=== PATIENT | male | born 1965 | race Caucasian/White ===

== ENCOUNTER 2020-08-19 16:09 | Inpatient (IN) ==
[2020-08-19] MEDS ORDERED: Famotidine 20 MG/2 ML VIAL IVP ONE (16:57)
[2020-08-19 17:15] LABS: Basophils # 0.1 K/mcL (0.0-0.2); Basophils % 0.6 %; Eosinophils # 0.2 K/mcL (0.0-0.6); Eosinophils % 2.1 %; Hematocrit 47.3 % (37.5-50.1); Hemoglobin 15.8 g/dL (12.9-16.9); Immature Granulocytes % 0.8 % (0-4); Lymphocytes # 1.8 K/mcL (0.6-4.6); Lymphocytes % 22.7 %; Mean Corpuscular HGB Conc 33.4 g/dL (31.6-35.5); Mean Corpuscular Hemoglobin 32.3 pg (28.0-33.3); Mean Corpuscular Volume 96.7 fL (83.0-100.0); Mean Platelet Volume 10.2 fL (9.4-12.4); Monocytes # 0.9 K/mcL (0.0-1.3); Monocytes % 11.8 %; Platelet Count 234 K/mcL (140-400); Red Blood Count 4.89 M/mcL (4.19-5.50)
[2020-08-19 17:40] LABS: BUN/Creatinine Ratio 19 (6-26); Blood Urea Nitrogen 15 mg/dL (6-20); Carbon Dioxide 27 mEq/L (23-29); Chloride 100 mEq/L (98-107); Glucose 130 mg/dL (70-105); Osmolality,Calculated 283 (280-300); Sodium 135 mEq/L (136-145); eGFR For African Americans > 60 (> 60); eGFR For Non-African Americans > 60 (> 60)
[2020-08-19] MEDS ORDERED: Furosemide 40 MG/4 ML VIAL IVP ONE (17:48)
[2020-08-19 17:54] LABS: Platelet Estimate Normal (Normal); Reactive Lymphocytes Present (Not Present)
[2020-08-19] MEDS ORDERED: niCARdipine 20 MG/200 ML MLS IVC ONE (20:00)
[2020-08-19] MEDS: niCARdipine 20 MG/200 ML MLS IVC SCH (20:04)
[2020-08-19] MEDS ORDERED: Ondansetron 4 MG/2 ML VIAL IVP PRN (20:43)
[2020-08-19] MEDS ORDERED: Naloxone 0.4 MG/ML INJ IVP PRN (20:43)
[2020-08-19] MEDS ORDERED: Perflutren Lipid Microsphere 1.3 ML in 0.9 % Sodium Chloride 8.7 ML IVP PRN (20:46)
[2020-08-19] MEDS ORDERED: *HR* Dextrose 50 % in Water (Vial) 50 ML VIAL IVP PRN (20:49)
[2020-08-19] MEDS ORDERED: Dextrose Gel 15 GM/37.5 ML TUBE PO PRN (20:49)
[2020-08-19] MEDS: Nicotine 21 MG PATCH.TD24 TD SCH (22:32)
[2020-08-20] MEDS: Insulin LISPRO 300 UNITS/3 ML VIAL SUBQ SCH ×4 (00:15→18:21)
[2020-08-20] MEDS: niCARdipine 20 MG/200 ML MLS IVC SCH ×5 (00:22→21:24)
[2020-08-20] MEDS: Acetaminophen 325 MG TABLET PO PRN ×2 (02:38→12:56)
[2020-08-20 02:47] LABS: Basophils % 0.2 %; Hematocrit 49.9 % (37.5-50.1); Hemoglobin 16.7 g/dL (12.9-16.9); Immature Granulocytes % 0.6 % (0-4); Lymphocytes # 0.7 K/mcL (0.6-4.6); Lymphocytes % 6.6 %; Mean Corpuscular HGB Conc 33.5 g/dL (31.6-35.5); Mean Corpuscular Hemoglobin 31.7 pg (28.0-33.3); Mean Corpuscular Volume 94.9 fL (83.0-100.0); Mean Platelet Volume 10.3 fL (9.4-12.4); Monocytes # 0.2 K/mcL (0.0-1.3); Monocytes % 1.7 %; Neutrophils # 9.5 K/mcL (1.6-8.9); Platelet Count 230 K/mcL (140-400); Red Blood Count 5.26 M/mcL (4.19-5.50); Red Cell Distribution Width 13.2 % (11.5-14.5); Segmented Neutrophils % 90.9 %; White Blood Count 10.4 K/mcL (4.3-11.1)
[2020-08-20 03:07] LABS: Alanine Aminotransferase 13 Units/L (7-52); Albumin 4.2 g/dL (3.5-5.7); Albumin/Globulin Ratio 0.9 (1.1-2.2); Alkaline Phosphatase 92 Units/L (34-104); Aspartate Amino Transferase 14 Units/L (13-39); BUN/Creatinine Ratio 20 (6-26); Bilirubin,Total 0.3 mg/dL (0.3-1.0); Blood Urea Nitrogen 16 mg/dL (6-20); Calcium 9.9 mg/dL (8.6-10.3); Carbon Dioxide 23 mEq/L (23-29); Chloride 102 mEq/L (98-107); Chol/HDL Ratio 4.5 (0-4.9); Cholesterol 167 mg/dL (< 200); Globulin 4.5 g/dL (2.4-3.5); Glucose 164 mg/dL (70-105); HDL Cholesterol 37 mg/dL (40-59); LDL Cholesterol,Calculated 117 mg/dL (< 100); Magnesium 1.8 mg/dL (1.6-2.6); Osmolality,Calculated 283 (280-300); Phosphorous 1.6 mg/dL (2.7-4.5); Potassium 4.1 mEq/L (3.5-5.1); Sodium 134 mEq/L (136-145); Total Protein 8.7 g/dL (6.4-8.9); Triglycerides 63 mg/dL (< 150); eGFR For African Americans > 60 (> 60); eGFR For Non-African Americans > 60 (> 60)
[2020-08-20 03:08] LABS: Estimated Average Glucose 128 mg/dl; Hemoglobin A1C 6.1 %
[2020-08-20] MEDS: *HR* Enoxaparin 40 MG/0.4 ML SYRINGE SQ SCH (05:45)
[2020-08-20] MEDS ORDERED: Isovue-370 500 ML BOTTLE IVP ONE (06:53)
[2020-08-20] MEDS: Nicotine 21 MG PATCH.TD24 TD SCH (07:50)
[2020-08-20] MEDS: Furosemide 20 MG/2 ML VIAL IVP SCH (07:51)
[2020-08-20] MEDS ORDERED: carvediloL 6.25 MG TABLET PO SCH ×2 (08:00)
[2020-08-20] MEDS ORDERED: Furosemide 20 MG/2 ML VIAL IVP ONE (09:37)
[2020-08-20] MEDS: amLODIPine 5 MG TABLET PO SCH (10:16)
[2020-08-20] MEDS: carvediloL 6.25 MG TABLET PO SCH ×2 (10:17→17:12)
[2020-08-20 11:24] LABS: Amphetamine Screen,Urine Negative ng/mL (Cutoff=1000); Barbiturate Screen,Urine Negative ng/mL (Cutoff=200); Benzodiazepines Screen,Urine Negative ng/mL (Cutoff=200); Cannabinoid Screen,Urine Positive ng/mL (Cutoff = 50); Cocaine Screen,Urine Negative ng/mL (Cutoff= 300); Opiate Screen,Urine Negative ng/mL (Cutoff=300); Phencyclidine Screen,Urine Negative ng/mL (Cutoff=25)
[2020-08-20] MEDS: hydrALAZINE 25 MG TABLET PO SCH (17:12)
[2020-08-21] MEDS: hydrALAZINE 25 MG TABLET PO SCH ×3 (00:21→16:51)
[2020-08-21] MEDS: niCARdipine 20 MG/200 ML MLS IVC SCH ×2 (02:45→05:18)
[2020-08-21] MEDS ORDERED: Benzonatate 100 MG CAPSULE PO PRN (03:50)
[2020-08-21] MEDS ORDERED: Ipratropium/Albuterol Neb 3 ML IH PRN (03:50)
[2020-08-21] MEDS ORDERED: Albuterol 2.5 MG/3 ML NEBULIZER IH PRN (03:50)
[2020-08-21] MEDS: *HR* Enoxaparin 40 MG/0.4 ML SYRINGE SQ SCH (05:07)
[2020-08-21 07:14] LABS: BUN/Creatinine Ratio 28 (6-26); Blood Urea Nitrogen 24 mg/dL (6-20); Calcium 9.6 mg/dL (8.6-10.3); Carbon Dioxide 24 mEq/L (23-29); Chloride 102 mEq/L (98-107); Glucose 130 mg/dL (70-105); Osmolality,Calculated 286 (280-300); Sodium 135 mEq/L (136-145); eGFR For African Americans > 60 (> 60); eGFR For Non-African Americans > 60 (> 60)
[2020-08-21] MEDS: Acetaminophen 325 MG TABLET PO PRN (07:40)
[2020-08-21] MEDS: amLODIPine 5 MG TABLET PO SCH (07:43)
[2020-08-21] MEDS: Furosemide 20 MG/2 ML VIAL IVP SCH (07:43)
[2020-08-21] MEDS: carvediloL 25 MG TABLET PO SCH ×2 (07:43→16:51)
[2020-08-21] MEDS: Nicotine 21 MG PATCH.TD24 TD SCH (07:44)
[2020-08-21] MEDS: Insulin LISPRO 300 UNITS/3 ML VIAL SUBQ SCH ×3 (07:46→16:51)
[2020-08-21] MEDS ORDERED: Insulin LISPRO 300 UNITS/3 ML VIAL SUBQ SCH (21:00)
[2020-08-22] MEDS: hydrALAZINE 25 MG TABLET PO SCH ×2 (00:08→08:24)
[2020-08-22] MEDS: Acetaminophen 325 MG TABLET PO PRN (05:29)
[2020-08-22] MEDS: *HR* Enoxaparin 40 MG/0.4 ML SYRINGE SQ SCH (05:30)
[2020-08-22 07:26] VITALS: BP 157/63
[2020-08-22] MEDS: carvediloL 25 MG TABLET PO SCH (08:25)
[2020-08-22] MEDS: amLODIPine 5 MG TABLET PO SCH (08:25)
[2020-08-22] MEDS: Nicotine 21 MG PATCH.TD24 TD SCH (08:26)
[2020-08-22] MEDS: Furosemide 20 MG/2 ML VIAL IVP SCH (08:26)
[2020-08-22] MEDS: Insulin LISPRO 300 UNITS/3 ML VIAL SUBQ SCH (08:27)
== END 2020-08-22 10:30 | disposition home or self-care (01) | DRG 199 ==
LOC: EMEROOARM 16:09 → 2NNU 16:09 → SUATTDRO 08-20 12:49
PROVIDERS: ADMIT Internal Medicine; ATTEND Internal Medicine

== ENCOUNTER 2020-09-02 20:59 | Observation (INO) ==
[2020-09-02 21:41] LABS: Basophils % 0.4 %; Eosinophils # 0.2 K/mcL (0.0-0.6); Eosinophils % 2.1 %; Hematocrit 40.7 % (37.5-50.1); Hemoglobin 13.1 g/dL (12.9-16.9); Immature Granulocytes % 0.4 % (0-4); Lymphocytes % 18.9 %; Mean Corpuscular HGB Conc 32.2 g/dL (31.6-35.5); Mean Corpuscular Hemoglobin 30.3 pg (28.0-33.3); Mean Platelet Volume 10.3 fL (9.4-12.4); Monocytes # 1.1 K/mcL (0.0-1.3); Monocytes % 9.8 %; Neutrophils # 7.3 K/mcL (1.6-8.9); Platelet Count 268 K/mcL (140-400); Red Blood Count 4.33 M/mcL (4.19-5.50); Red Cell Distribution Width 13.3 % (11.5-14.5); Segmented Neutrophils % 68.4 %; White Blood Count 10.7 K/mcL (4.3-11.1)
[2020-09-02] MEDS ORDERED: Nicotine 14 MG PATCH.TD24 TD STA (21:56)
[2020-09-02] MEDS ORDERED: GI Cocktail 40 ML EACH PO ONE (21:56)
[2020-09-02 22:02] LABS: BUN/Creatinine Ratio 27 (6-26); Blood Urea Nitrogen 22 mg/dL (6-20); Calcium 9.2 mg/dL (8.6-10.3); Carbon Dioxide 27 mEq/L (23-29); Chloride 102 mEq/L (98-107); Glucose 158 mg/dL (70-105); Osmolality,Calculated 287 (280-300); Potassium 4.2 mEq/L (3.5-5.1); Sodium 135 mEq/L (136-145); eGFR For African Americans > 60 (> 60); eGFR For Non-African Americans > 60 (> 60)
[2020-09-02 22:03] LABS: Troponin I 0.03 ng/mL (< 0.04)
[2020-09-03] MEDS ORDERED: Aspirin 325 MG TABLET PO ONE (02:03)
[2020-09-03] MEDS ORDERED: hydrALAZINE 25 MG TABLET PO ONE (02:04)
[2020-09-03] MEDS ORDERED: Acetaminophen 325 MG TABLET PO PRN (02:44)
[2020-09-03] MEDS ORDERED: Ondansetron 4 MG/2 ML VIAL IVP PRN (02:44)
[2020-09-03] MEDS ORDERED: Naloxone 0.4 MG/ML INJ IVP PRN (02:44)
[2020-09-03] MEDS ORDERED: Melatonin 3 MG TABLET PO PRN (02:44)
[2020-09-03] MEDS ORDERED: *HR* Labetalol 20 MG/4 ML SYRINGE IVP PRN (02:51)
[2020-09-03] MEDS ORDERED: Furosemide 40 MG/4 ML VIAL IVP ONE (04:20)
[2020-09-03] MEDS ORDERED: niCARdipine 20 MG/200 ML MLS IVC SCH (04:30)
[2020-09-03] MEDS: *HR* Enoxaparin 40 MG/0.4 ML SYRINGE SQ SCH (04:45)
[2020-09-03 07:39] LABS: BUN/Creatinine Ratio 26 (6-26); Blood Urea Nitrogen 19 mg/dL (6-20); Calcium 9.6 mg/dL (8.6-10.3); Carbon Dioxide 27 mEq/L (23-29); Chloride 102 mEq/L (98-107); Glucose 125 mg/dL (70-105); Magnesium 2.1 mg/dL (1.6-2.6); Osmolality,Calculated 284 (280-300); Potassium 4.1 mEq/L (3.5-5.1); Sodium 135 mEq/L (136-145); eGFR For African Americans > 60 (> 60); eGFR For Non-African Americans > 60 (> 60)
[2020-09-03] MEDS: Furosemide 20 MG TABLET PO SCH (07:56)
[2020-09-03] MEDS: hydrALAZINE 25 MG TABLET PO SCH ×3 (07:56→23:48)
[2020-09-03] MEDS: carvediloL 25 MG TABLET PO SCH ×2 (07:56→15:54)
[2020-09-03] MEDS ORDERED: amLODIPine 5 MG TABLET PO SCH (09:00)
[2020-09-03] MEDS ORDERED: Nicotine 14 MG PATCH.TD24 TD SCH (22:00)
[2020-09-04 02:51] LABS: BUN/Creatinine Ratio 21 (6-26); Blood Urea Nitrogen 15 mg/dL (6-20); Calcium 9.6 mg/dL (8.6-10.3); Carbon Dioxide 25 mEq/L (23-29); Chloride 104 mEq/L (98-107); Glucose 107 mg/dL (70-105); Osmolality,Calculated 283 (280-300); Potassium 4.1 mEq/L (3.5-5.1); Sodium 136 mEq/L (136-145); eGFR For African Americans > 60 (> 60); eGFR For Non-African Americans > 60 (> 60)
[2020-09-04] MEDS: *HR* Enoxaparin 40 MG/0.4 ML SYRINGE SQ SCH (05:37)
[2020-09-04] MEDS: carvediloL 25 MG TABLET PO SCH (07:27)
[2020-09-04] MEDS: hydrALAZINE 25 MG TABLET PO SCH (07:28)
[2020-09-04] MEDS: Furosemide 20 MG TABLET PO SCH (07:28)
[2020-09-04] MEDS ORDERED: Aspirin Enteric Coated 81 MG Tablet PO SCH (09:00)
[2020-09-04 10:48] VITALS: BP 138/70
== END 2020-09-04 12:30 | disposition home or self-care (01) ==
LOC: 2ANU 20:59 → EMEROOARM 20:59 → SUATTDRO 09-03 02:27 → 2ANU 09-03 02:53
PROVIDERS: ADMIT Family Medicine; ATTEND Student in an Organized Health Care Education/Training Program

== ENCOUNTER 2020-09-16 01:42 | Observation (INO) ==
[2020-09-16] MEDS ORDERED: hydrOXYzine pamoate 25 MG CAPSULE PO ONE (02:12)
[2020-09-16 02:32] LABS: Bilirubin,Urine Negative (Negative); Blood,Urine Negative (Negative); Clarity,Urine Clear (Clear); Color,Urine Light-Yellow (Yellow); Glucose,Urine (UA) Normal (Normal); Ketones,Urine Negative (Negative); Leukocyte Esterase,Urine Negative (Negative); Nitrite,Urine Negative (Negative); PH,Urine 6.5 pH Units (5.0-8.0); Protein,Urine Negative (Neg-Trace); Specific Gravity,Urine 1.012 (1.010-1.025); Urobilinogen,Urine Normal (Normal)
[2020-09-16 02:35] LABS: Basophils % 0.3 %; Eosinophils # 0.2 K/mcL (0.0-0.6); Eosinophils % 1.7 %; Hematocrit 41.2 % (37.5-50.1); Immature Granulocytes % 0.4 % (0-4); Lymphocytes # 1.9 K/mcL (0.6-4.6); Lymphocytes % 17.6 %; Mean Corpuscular Hemoglobin 31.7 pg (28.0-33.3); Mean Corpuscular Volume 93.2 fL (83.0-100.0); Monocytes # 1.1 K/mcL (0.0-1.3); Monocytes % 9.8 %; Neutrophils # 7.6 K/mcL (1.6-8.9); Platelet Count 240 K/mcL (140-400); Red Blood Count 4.42 M/mcL (4.19-5.50); Red Cell Distribution Width 13.2 % (11.5-14.5); Segmented Neutrophils % 70.2 %; White Blood Count 10.9 K/mcL (4.3-11.1)
[2020-09-16 02:59] LABS: Blood Urea Nitrogen 44 mg/dL (6-20); Calcium 9.8 mg/dL (8.6-10.3); Carbon Dioxide 27 mEq/L (23-29); Chloride 100 mEq/L (98-107); Glucose 134 mg/dL (70-105); Osmolality,Calculated 293 (280-300); Sodium 135 mEq/L (136-145)
[2020-09-16 03:05] LABS: Troponin I 0.04 ng/mL (< 0.04)
[2020-09-16 03:24] LABS: BUN/Creatinine Ratio 31 (6-26); eGFR For African Americans > 60 (> 60); eGFR For Non-African Americans 52 (> 60)
[2020-09-16] MEDS ORDERED: Ondansetron 4 MG/2 ML VIAL IVP PRN (05:18)
[2020-09-16] MEDS ORDERED: Naloxone 0.4 MG/ML INJ IVP PRN (05:18)
[2020-09-16] MEDS ORDERED: Acetaminophen 325 MG TABLET PO PRN (05:18)
[2020-09-16] MEDS ORDERED: Melatonin 3 MG TABLET PO PRN (05:18)
[2020-09-16] MEDS: Nicotine 21 MG PATCH.TD24 TD SCH (06:32)
[2020-09-16] MEDS ORDERED: amLODIPine 5 MG TABLET PO SCH (10:00)
[2020-09-16] MEDS: carvediloL 25 MG TABLET PO SCH ×2 (10:20→16:56)
[2020-09-16] MEDS: hydrALAZINE 25 MG TABLET PO SCH (16:55)
[2020-09-16] MEDS: hydrOXYzine pamoate 25 MG CAPSULE PO PRN (20:55)
[2020-09-17] MEDS: hydrALAZINE 25 MG TABLET PO SCH ×2 (00:49→08:30)
[2020-09-17] MEDS: hydrOXYzine pamoate 25 MG CAPSULE PO PRN (06:29)
[2020-09-17] MEDS: carvediloL 25 MG TABLET PO SCH (08:30)
[2020-09-17] MEDS: Nicotine 21 MG PATCH.TD24 TD SCH (08:31)
[2020-09-17] MEDS ORDERED: Aspirin Enteric Coated 81 MG Tablet PO SCH (09:00)
[2020-09-17] MEDS ORDERED: amLODIPine 5 MG TABLET PO SCH (09:00)
[2020-09-17 12:03] VITALS: BP 152/68
== END 2020-09-17 14:08 | disposition home or self-care (01) ==
LOC: EMEROOARM 01:42 → 2ANU 01:42 → SUATTDRO 03:52 → 2NENU 04:00
PROVIDERS: ADMIT Family Medicine; ATTEND Internal Medicine

== ENCOUNTER 2021-06-12 16:29 | Inpatient (IN) ==
[2021-06-12 18:39] LABS: Basophils % 0.1 %; Eosinophils # 0.1 K/mcL (0.0-0.6); Eosinophils % 0.7 %; Hematocrit 35.3 % (37.5-50.1); Hemoglobin 11.7 g/dL (12.9-16.9); Immature Granulocytes % 0.2 % (0-4); Lymphocytes # 0.9 K/mcL (0.6-4.6); Mean Corpuscular HGB Conc 33.1 g/dL (31.6-35.5); Mean Corpuscular Hemoglobin 30.1 pg (28.0-33.3); Mean Corpuscular Volume 90.7 fL (83.0-100.0); Mean Platelet Volume 11.5 fL (9.4-12.4); Monocytes # 0.8 K/mcL (0.0-1.3); Monocytes % 8.2 %; Neutrophils # 7.9 K/mcL (1.6-8.9); Platelet Count 209 K/mcL (140-400); Red Blood Count 3.89 M/mcL (4.19-5.50); Red Cell Distribution Width 12.7 % (11.5-14.5); Segmented Neutrophils % 81.8 %; White Blood Count 9.7 K/mcL (4.3-11.1)
[2021-06-12 18:58] LABS: BUN/Creatinine Ratio 24 (6-26); Blood Urea Nitrogen 97 mg/dL (6-20); Calcium 9.9 mg/dL (8.6-10.3); Carbon Dioxide 22 mEq/L (23-29); Chloride 104 mEq/L (98-107); Glucose 123 mg/dL (70-105); Osmolality,Calculated 311 (280-300); Potassium 4.9 mEq/L (3.5-5.1); Sodium 135 mEq/L (136-145); Troponin I < 0.03 ng/mL (< 0.04); eGFR For African Americans 18 (> 60); eGFR For Non-African Americans 15 (> 60)
[2021-06-12] MEDS ORDERED: 0.9 % Sodium Chloride 1,000 ML IVC ONE (20:35)
[2021-06-12] MEDS ORDERED: 0.9 % Sodium Chloride 1,000 ML IVC SCH (20:45)
[2021-06-12 21:44] LABS: Amorphous Sediment,Urine Few per hpf (None-Few); Bilirubin,Urine Negative (Negative); Blood,Urine Negative (Negative); Clarity,Urine Turbid (Clear); Color,Urine Yellow (Yellow); Glucose,Urine (UA) Normal (Normal); Ketones,Urine Negative (Negative); Leukocyte Esterase,Urine Negative (Negative); Mucus,Urine Few per lpf (None-Few); Nitrite,Urine Negative (Negative); PH,Urine 5.5 pH Units (5.0-8.0); Protein,Urine 100 mg/dL (Neg-Trace); Specific Gravity,Urine 1.018 (1.010-1.025); Urobilinogen,Urine Normal (Normal)
[2021-06-12 21:56] LABS: Sodium, Urine 39.9 mEq/L
[2021-06-12 21:58] LABS: Influenza A PCR Negative (Negative); Influenza B PCR Negative (Negative); Resp. Syncytial Virus PCR Negative (Negative)
[2021-06-12 21:59] LABS: SARS-CoV-2 by PCR (In House) Positive (Negative)
[2021-06-12] MEDS ORDERED: Acetaminophen 325 MG TABLET PO PRN (22:14)
[2021-06-12] MEDS ORDERED: Naloxone 0.4 MG/ML INJ IVP PRN (22:14)
[2021-06-12] MEDS ORDERED: Melatonin 3 MG TABLET PO PRN (22:14)
[2021-06-12] MEDS ORDERED: Ondansetron 4 MG/2 ML VIAL IVP PRN (22:14)
[2021-06-12] MEDS: Nicotine 21 MG PATCH.TD24 TD SCH (22:52)
[2021-06-13 01:43] LABS: Hematocrit 33.4 % (37.5-50.1); Hemoglobin 10.9 g/dL (12.9-16.9); Mean Corpuscular HGB Conc 32.6 g/dL (31.6-35.5); Mean Corpuscular Hemoglobin 29.2 pg (28.0-33.3); Mean Corpuscular Volume 89.5 fL (83.0-100.0); Mean Platelet Volume 11.4 fL (9.4-12.4); Platelet Count 189 K/mcL (140-400); Red Blood Count 3.73 M/mcL (4.19-5.50); Red Cell Distribution Width 12.6 % (11.5-14.5); White Blood Count 7.2 K/mcL (4.3-11.1)
[2021-06-13] MEDS ORDERED: Saliva Stimulant 44.3ml BOTTLE PO PRN (01:51)
[2021-06-13] MEDS ORDERED: Saline Nasal Spray 44 ML BOTTLE NS PRN (01:51)
[2021-06-13] MEDS ORDERED: Artificial Tears SOLN 15 ML BOTTLE BOTH EYES PRN (01:51)
[2021-06-13 01:54] LABS: INR 1.2; Prothrombin Time 13.7 Seconds (9.4-12.1)
[2021-06-13 02:01] LABS: Calcium 9.4 mg/dL (8.6-10.3); Magnesium 2.1 mg/dL (1.6-2.6); Phosphorous 3.7 mg/dL (2.7-4.5)
[2021-06-13] MEDS ORDERED: *HR* Dextrose 50 % in Water (Syg) 50 ML SYRINGE IVP PRN (02:07)
[2021-06-13] MEDS ORDERED: Dextrose Gel 15 GM/37.5 ML TUBE PO PRN ×2 (02:07)
[2021-06-13] MEDS ORDERED: D5% in Water 1,000 ML IVC PRN (02:07)
[2021-06-13] MEDS: 0.9 % Sodium Chloride 1,000 ML IVC SCH ×2 (02:49→09:45)
[2021-06-13 03:35] LABS: % Iron Saturation 20 % (20-55); Iron 48 mcg/dL (65-175); Lactate Dehydrogenase 124 Units/L (140-271); Transferrin 174 mg/dL (203-362)
[2021-06-13 03:38] LABS: C-Reactive Protein 31 mg/L (Less than 10)
[2021-06-13 03:54] LABS: Ferritin 290 ng/mL (20-250)
[2021-06-13 03:58] LABS: Folate 11.1 ng/mL (3.0-16.0)
[2021-06-13] MEDS: Ipratropium 1 PUFF INHALER IH SCH ×2 (04:02→07:50)
[2021-06-13] MEDS: *HR* Heparin 5,000 UNIT/ML VIAL SQ SCH ×3 (05:02→21:40)
[2021-06-13] MEDS: Multivit/Ca/Min/Fe/FA 1 TAB TABLET PO SCH (08:20)
[2021-06-13] MEDS: Nicotine 21 MG PATCH.TD24 TD SCH (08:21)
[2021-06-13] MEDS: Aspirin 81 MG TAB.CHEW PO SCH (08:21)
[2021-06-13] MEDS: Cholecalciferol (D-3) 1,000 UNIT (25MCG) TABLET PO SCH (08:21)
[2021-06-13] MEDS ORDERED: SUBOXONE SL SCH (09:00)
[2021-06-13] MEDS ORDERED: Chlorhexidine Rinse 15 ML MOUTHWASH MM SCH (09:00)
[2021-06-13] MEDS: Budesonide/Formoterol 160/4.5 1 PUFF INH IH SCH ×2 (11:12→20:17)
[2021-06-13] MEDS: Sodium Bicarbonate 75 MEQ in 0.45 % Sodium Chloride 1,000 ML IVC SCH ×2 (11:31→21:40)
[2021-06-13] MEDS: Patient Taking Own Medication 1 EACH SL SCH (12:38)
[2021-06-13] MEDS ORDERED: Ipratropium 1 PUFF INHALER IH PRN (13:11)
[2021-06-13] MEDS ORDERED: Nitroglycerin 0.4 MG TAB.SUBL SL PRN (16:48)
[2021-06-13] MEDS ORDERED: hydrOXYzine pamoate 25 MG CAPSULE PO PRN (16:48)
[2021-06-13] MEDS: carvediloL 25 MG TABLET PO SCH (17:07)
[2021-06-13] MEDS: hydrALAZINE 25 MG TABLET PO SCH (17:07)
[2021-06-14] MEDS: hydrALAZINE 25 MG TABLET PO SCH ×4 (01:33→23:52)
[2021-06-14 02:25] LABS: Hematocrit 33.8 % (37.5-50.1); Hemoglobin 11.5 g/dL (12.9-16.9); Immature Granulocytes % 0.2 % (0-4); Lymphocytes # 0.7 K/mcL (0.6-4.6); Mean Corpuscular Hemoglobin 29.7 pg (28.0-33.3); Mean Corpuscular Volume 87.3 fL (83.0-100.0); Mean Platelet Volume 11.8 fL (9.4-12.4); Monocytes # 0.5 K/mcL (0.0-1.3); Monocytes % 9.3 %; Neutrophils # 4.2 K/mcL (1.6-8.9); Platelet Count 203 K/mcL (140-400); Red Blood Count 3.87 M/mcL (4.19-5.50); Red Cell Distribution Width 12.3 % (11.5-14.5); Segmented Neutrophils % 77.5 %; White Blood Count 5.4 K/mcL (4.3-11.1)
[2021-06-14 02:42] LABS: Magnesium 1.9 mg/dL (1.6-2.6); Phosphorous 2.6 mg/dL (2.7-4.5); Uric Acid 6.4 mg/dL (2.3-7.6)
[2021-06-14 02:43] LABS: Albumin 4.1 g/dL (3.5-5.7); Albumin/Globulin Ratio 1.1 (1.1-2.2); Bilirubin,Total 0.5 mg/dL (0.3-1.0); Calcium 9.8 mg/dL (8.6-10.3); Globulin 3.6 g/dL (2.4-3.5); Potassium 4.8 mEq/L (3.5-5.1); Total Protein 7.7 g/dL (6.4-8.9)
[2021-06-14] MEDS: *HR* Heparin 5,000 UNIT/ML VIAL SQ SCH ×3 (05:53→19:42)
[2021-06-14] MEDS: Budesonide/Formoterol 160/4.5 1 PUFF INH IH SCH ×2 (07:47→20:38)
[2021-06-14] MEDS: Isosorbide MONOnitrate (24 HR) 30 MG TAB.ER.24H PO SCH (09:14)
[2021-06-14] MEDS: Multivit/Ca/Min/Fe/FA 1 TAB TABLET PO SCH (09:14)
[2021-06-14] MEDS: Nicotine 21 MG PATCH.TD24 TD SCH (09:14)
[2021-06-14] MEDS: carvediloL 25 MG TABLET PO SCH ×2 (09:15→16:39)
[2021-06-14] MEDS: amLODIPine 5 MG TABLET PO SCH (09:15)
[2021-06-14] MEDS: Aspirin 81 MG TAB.CHEW PO SCH (09:15)
[2021-06-14] MEDS: Cholecalciferol (D-3) 1,000 UNIT (25MCG) TABLET PO SCH (09:15)
[2021-06-14] MEDS: Patient Taking Own Medication 1 EACH SL SCH (09:36)
[2021-06-14] MEDS: Sodium Bicarbonate 75 MEQ in 0.45 % Sodium Chloride 1,000 ML IVC SCH ×2 (09:39→19:41)
[2021-06-15 02:35] LABS: Calcium 9.6 mg/dL (8.6-10.3); Magnesium 1.7 mg/dL (1.6-2.6); Phosphorous 2.7 mg/dL (2.7-4.5); Potassium 4.7 mEq/L (3.5-5.1)
[2021-06-15] MEDS: *HR* Heparin 5,000 UNIT/ML VIAL SQ SCH (05:16)
[2021-06-15] MEDS: Sodium Bicarbonate 75 MEQ in 0.45 % Sodium Chloride 1,000 ML IVC SCH (05:16)
[2021-06-15 07:15] VITALS: BP 116/72; PULSE 69; TEMP 97.9
[2021-06-15] MEDS: Aspirin 81 MG TAB.CHEW PO SCH (07:22)
[2021-06-15] MEDS: Multivit/Ca/Min/Fe/FA 1 TAB TABLET PO SCH (07:22)
[2021-06-15] MEDS: carvediloL 25 MG TABLET PO SCH (07:22)
[2021-06-15] MEDS: amLODIPine 5 MG TABLET PO SCH (07:22)
[2021-06-15] MEDS: Isosorbide MONOnitrate (24 HR) 30 MG TAB.ER.24H PO SCH (07:22)
[2021-06-15] MEDS: Nicotine 21 MG PATCH.TD24 TD SCH (07:22)
[2021-06-15] MEDS: Cholecalciferol (D-3) 1,000 UNIT (25MCG) TABLET PO SCH (07:22)
[2021-06-15] MEDS: hydrALAZINE 25 MG TABLET PO SCH (07:22)
[2021-06-15] MEDS: Budesonide/Formoterol 160/4.5 1 PUFF INH IH SCH (07:45)
[2021-06-15 07:48] VITALS: O2SAT 92
[2021-06-15] MEDS: Patient Taking Own Medication 1 EACH SL SCH (08:16)
== END 2021-06-15 12:15 | disposition home or self-care (01) | DRG 137 ==
LOC: EMEROOARM 16:29 → 2NENU 16:29 → SUATTDRO 23:37
PROVIDERS: ADMIT Internal Medicine; ATTEND Family Medicine